=== PATIENT | male | born 1960 | race Caucasian/White ===

== ENCOUNTER 2016-05-23 04:47 | Emergency (ER) | payer MEDICARE ==
[~2016-05-23] VITALS: Ht 193 cm; Wt 98.0 kg
[~2016-05-23 04:47] MED LIST: ADULT ASA81 MG OR; AMARYL4 MG PO; AMOXICILLIN500 MG OR; AMOXICILLIN500 MG PO; AUGMENTIN875 MG OR; AUGMENTIN875TAB OR; AVANDIA4 MG OR; AVANDIA8 MG OR; BACTRIM DS1 TAB OR; BACTRIM DS1 TAB PO; BUT/APAP/CAF PO; CELEBREX200 MG PO; CELEXA40 M1 PO; CEPHALEXIN500 MG PO; CLONAZEP ODT1 MG OR; CLONAZEPAM1 MG OR; DEPAKOTE ER500 MG PO; DEPAKOTE500 MG OR; DIABETA5 MG OR; DOXYCYC MONO100 MG OR; EC-NAPROSYN500 MG PO; FLEXERIL OR; FLOXIN OTIC OT; GLYB/METFO5 MG/500 M OR; HYDROCO/APAP1 TA9 PO; KEFLEX500 MG PO; KLONOPIN1 MG PO; LANTUS SC; LANTUS100 MG/ML SC; LEVOTHYROXIN100 MC1 PO; LEVOTHYROXINE100 MCG PO; LORTAB 10 OR; LORTAB 10 PO; LORTAB 7.5 OR; LOSARTAN POT25 MG PO; LOSARTAN POT50 MG PO; LOVASTATIN40 MG OR; MELOXICAM15 MG PO; METFORMIN1000 MG PO; METFORMIN850 MG OR; METHOCARBAM500 MG PO; METOPROLOL SUCC50 MG PO; METOPROLOL50 MG OR; NAPROSYN500 MG PO; NEXIUM40 M1 OR; NEXIUM40 MG OR; NITROQUICK0.4 MG SL; NITROSTAT0.4 MG SL; NOVOLIN 70/30 SC; PERCOCET 5/325M1 TAB OR; PERCOCET 5/325M1 TAB PO; PRANDIN1 MG OR; PRAVACHOL80 MG PO; PREVACID30 M1 PO; PREVACID30 M3 PO; PRIMIDONE50 MG OR; PRISTIQ50 MG PO; PROPRANOLOL120 MG OR; PROPRANOLOL20 MG OR; QUETIAPINE FUM100 MG PO; SEROQUEL100 MG PO; SEROQUEL200 MG OR; SOMA350 MG PO; TOPROL XL50 MG OR; ULTRAM50 M1 PO; ULTRAM50 MG OR; ZANAFLEX4 MG OR; ZOFRAN ODT4 MG PO; ZOLPIDEM10 M1 PO
[2016-05-23] MEDS ORDERED: METOPROL TAR25 MG PO (05:08)
[2016-05-23] MEDS ORDERED: PRAVASTATIN20 MG PO (05:16)
[2016-05-23] MEDS ORDERED: FLOMAX0.4 M1 PO (05:19)
[2016-05-23 05:23] LABS: INFLUENZA A NONE DETECTED (NONE DETECT); INFLUENZA B NONE DETECTED (NONE DETECT)
[2016-05-23] MEDS ORDERED: AUGMENTIN875TAB PO (05:46)
[2016-05-23] MEDS ORDERED: CODEINE/GUAIFEN1 SOL PO (05:46)
[2016-05-23 06:07] VITALS: BP 160/88
== END 2016-05-23 06:07 | disposition home or self-care (01) ==
LOC: ED 04:47
PROVIDERS: Emergency Medicine
DX: J02.0 Streptococcal pharyngitis (principal); I10 Essential (primary) hypertension; E11.9 Type 2 diabetes mellitus without complications; E78.5 Hyperlipidemia, unspecified; F31.9 Bipolar disorder, unspecified; G20 Parkinson's disease

== ENCOUNTER 2016-05-31 14:29 | Emergency (ER) | payer OTHER, MEDICARE ==
[~2016-05-31] VITALS: Ht 193 cm; Wt 100.0 kg
[~2016-05-31 14:29] MED LIST changes: +AUGMENTIN875TAB PO; +CODEINE/GUAIFEN1 SOL PO; +FLOMAX0.4 M1 PO; +METOPROL TAR25 MG PO; +PRAVASTATIN20 MG PO
[2016-05-31] MEDS ORDERED: EC-NAPROSYN500 MG PO (16:40)
[2016-05-31] MEDS ORDERED: PERCOCET 5/325M1 TAB PO (16:40)
[2016-05-31] MEDS ORDERED: FLEXERIL PO (16:40)
[2016-05-31 16:51] VITALS: BP 152/88
== END 2016-05-31 17:19 | disposition home or self-care (01) | DRG 563 ==
LOC: ED 14:29
DX: S39.012A Strain of muscle, fascia and tendon of lower back, initial encounter (principal); G20 Parkinson's disease; S29.012A Strain of muscle and tendon of back wall of thorax, initial encounter; I10 Essential (primary) hypertension; E11.9 Type 2 diabetes mellitus without complications; E78.5 Hyperlipidemia, unspecified; F31.9 Bipolar disorder, unspecified; V49.40XA Driver injured in collision with unspecified motor vehicles in traffic accident, initial encounter

== ENCOUNTER 2016-08-29 23:18 | Emergency (ER) | payer MEDICARE, MEDICAID ==
[~2016-08-29] VITALS: Ht 193 cm; Wt 97.8 kg
[~2016-08-29 23:18] MED LIST changes: +FLEXERIL PO
[2016-08-30 01:10] LABS: HEMATOCRIT 35.7 % (39.0-50.0); HEMOGLOBIN 12.5 g/dl (14.0-18.0); MEAN CELL VOLUME 85.4 fL CALC (80.0-100.0); MEAN CORPUSCULAR HGB 29.9 pG CALC (26.0-32.0); NEUT# 1.5 thou/uL (1.82-7.42); RED BLOOD COUNT 4.18 mill/uL (4.70-6.10); RED CELL DISTRI WIDTH 13.3 % (11.5-15.5)
[2016-08-30 01:12] LABS: URINE BILIRUBIN - DIPSTICK NEGATIVE (NEGATIVE); URINE BLOOD DIPSTICK NEGATIVE (NEGATIVE); URINE CLARITY CLEAR; URINE COLOR YELLOW; URINE GLUCOSE - DIPSTICK >=1000 mg/dL (NEGATIVE); URINE KETONE TRACE mg/dL (NEGATIVE); URINE LEUK ESTERASE NEGATIVE (NEGATIVE); URINE NITRITE - DIPSTICK NEGATIVE (Negative); URINE PROTEIN - DIPSTICK NEGATIVE (NEG-TRACE); URINE SPECIFIC GRAVITY <=1.005; URINE UROBILINOGEN - DIPSTICK 0.2 E.U./dL (0.2)
[2016-08-30 01:16] LABS: BARBITURATES NEGATIVE (NEGATIVE); COCAINE NEGATIVE (NEGATIVE); METHADONE NEGATIVE (NEGATIVE); OXCYCODONE NEGATIVE (NEGATIVE); TETRAHYDROCANNABIONOL NEGATIVE (NEGATIVE); TRICYLIC ANTIDEPRESSANTS NEGATIVE (NEGATIVE)
[2016-08-30 01:29] LABS: ALKALINE PHOSPHATASE 49 u/l (38-126); ANION GAP 14 (6-22 (CALC)); BILIRUBIN, TOTAL 0.4 mg/dL (0.0-1.4); BUN 15 mg/dL (9-20); BUN/CREATININE RATIO 21 (12-20 (CALC)); CALCIUM 9.6 mg/dL (8.4-10.2); CARBON DIOXIDE 26 mmol/l (22-30); CHLORIDE 100 mmol/l (95-108); CREATININE 0.7 mg/dL (0.7-1.3); GFR > 60 ML/MIN (>=60 (CALC)); GFR FOR AFR.AMER. > 60 ML/MIN (>=60 (CALC)); GLUCOSE 402 mg/dL (75-110); POTASSIUM 4.4 mmol/l (3.5-5.1); SGOT/AST 38 u/l (17-59); SGPT/ALT 24 u/l (21-72); SODIUM 136 mmol/l (137-146); TOTAL PROTEIN 6.3 g/dL (6.3-8.2)
[2016-08-30 01:41] LABS: MYOGLOBIN 28 ng/mL (0 - 121)
[2016-08-30 05:16] VITALS: BP 124/67
== END 2016-08-30 05:10 ==
LOC: ED 23:18
PROVIDERS: Emergency Medicine
DX: R55 Syncope and collapse (principal); D69.6 Thrombocytopenia, unspecified; E11.65 Type 2 diabetes mellitus with hyperglycemia; M25.512 Pain in left shoulder; R53.1 Weakness; M54.9 Dorsalgia, unspecified; I10 Essential (primary) hypertension; E78.5 Hyperlipidemia, unspecified; G20 Parkinson's disease; F31.9 Bipolar disorder, unspecified

== ENCOUNTER 2016-12-04 19:53 | Emergency (ER) | payer MEDICARE ==
[~2016-12-04] VITALS: Ht 193 cm; Wt 102.0 kg
[~2016-12-04 19:53] MED LIST changes: +BACLOFEN20 MG PO; +CELEBREX50 MG PO; +LEVEMIR FL100 UNIT/M SC; +LOPID600 MG PO; +OMEPRAZOLE20 M1 PO
[2016-12-04] MEDS ORDERED: DEPAKOTE500 MG PO (20:17)
[2016-12-04] MEDS ORDERED: GLIMEPIRIDE4 MG PO (20:17)
[2016-12-04] MEDS ORDERED: PRAVASTATIN SOD80 MG PO (20:18)
[2016-12-04] MEDS ORDERED: LOSARTAN POT25 MG PO (20:18)
[2016-12-04] MEDS ORDERED: METFORMIN HCL1000 MG PO (20:18)
[2016-12-04] MEDS ORDERED: AMOXICILLIN500 MG PO (21:09)
[2016-12-04] MEDS ORDERED: PERCOCET 5/325M1 TAB PO (21:09)
[2016-12-04 21:30] VITALS: BP 124/67
== END 2016-12-04 21:30 | disposition home or self-care (01) ==
LOC: ED 19:53
DX: K08.89 Other specified disorders of teeth and supporting structures (principal)

== ENCOUNTER 2016-12-24 08:48 | Day surgery (SDC) | payer MEDICARE ==
[~2016-12-24] VITALS: Ht 193 cm; Wt 90.7 kg
[~2016-12-24 08:48] MED LIST changes: +DEPAKOTE500 MG PO; +GLIMEPIRIDE4 MG PO; +METFORMIN HCL1000 MG PO; +PRAVASTATIN SOD80 MG PO
[2016-12-24] MEDS ORDERED: NORCO1 TA2 PO (11:11)
[2016-12-24 11:58] VITALS: BP 128/71
== END 2016-12-24 11:23 | disposition home or self-care (01) ==
LOC: ORM 08:48
PROVIDERS: ATTEND Anesthesiology Pain Medicine
PROC: 3E0T33Z Introduction of Anti-inflammatory into Peripheral Nerves and Plexi, Percutaneous Approach (ICD-10-PCS; principal; 2016-12-24)
PROC: 3E0T3BZ Introduction of Anesthetic Agent into Peripheral Nerves and Plexi, Percutaneous Approach (ICD-10-PCS; 2016-12-24)
DX: M54.2 Cervicalgia (principal); R51 Headache; M54.5 Low back pain; V89.2XXS Person injured in unspecified motor-vehicle accident, traffic, sequela

== ENCOUNTER 2017-01-07 06:03 | Day surgery (SDC) | payer MEDICARE ==
[~2017-01-07] VITALS: Ht 193 cm; Wt 90.7 kg
[~2017-01-07 06:03] MED LIST changes: +NORCO1 TA2 PO
[2017-01-07] MEDS ORDERED: NORCO1 TA2 PO (08:25)
[2017-01-07 09:10] VITALS: BP 108/69
== END 2017-01-07 08:40 | disposition home or self-care (01) ==
LOC: ORM 06:03
PROVIDERS: ATTEND Anesthesiology Pain Medicine
PROC: 3E0T33Z Introduction of Anti-inflammatory into Peripheral Nerves and Plexi, Percutaneous Approach (ICD-10-PCS; principal; 2017-01-07)
PROC: 3E0T3BZ Introduction of Anesthetic Agent into Peripheral Nerves and Plexi, Percutaneous Approach (ICD-10-PCS; 2017-01-07)
DX: M54.2 Cervicalgia (principal); R51 Headache; M47.812 Spondylosis without myelopathy or radiculopathy, cervical region; V89.2XXS Person injured in unspecified motor-vehicle accident, traffic, sequela

== ENCOUNTER 2017-01-15 13:42 | Emergency (ER) | payer MEDICARE ==
[~2017-01-15] VITALS: Ht 193 cm; Wt 92.6 kg
[2017-01-15 15:12] LABS: HEMATOCRIT 36.8 % (39.0-50.0); IMMATURE GRANULOCYTES 0.4 % (0.0-1.0); MEAN CELL VOLUME 83.8 fL CALC (80.0-100.0); MEAN CORPUSCULAR HGB 29.6 pG CALC (26.0-32.0); MEAN CORPUSCULAR HGB CONC 35.3 g/L CALC (32.0-36.0); NEUT# 2.31 thou/uL (1.82-7.42); RED BLOOD COUNT 4.39 mill/uL (4.70-6.10); RED CELL DISTRI WIDTH 13.5 % (11.5-15.5)
[2017-01-15 15:29] LABS: INFLUENZA A NONE DETECTED (NONE DETECT); INFLUENZA B NONE DETECTED (NONE DETECT)
[2017-01-15 15:31] LABS: ALBUMIN 3.9 g/dL (3.2-5.0); ALKALINE PHOSPHATASE 55 u/l (38-126); ANION GAP 15 (6-22 (CALC)); BILIRUBIN, TOTAL 0.5 mg/dL (0.0-1.4); BUN 32 mg/dL (9-20); BUN/CREATININE RATIO 38 (12-20 (CALC)); CALCIUM 9.6 mg/dL (8.4-10.2); CARBON DIOXIDE 27 mmol/l (22-30); CHLORIDE 98 mmol/l (95-108); CREATININE 0.8 mg/dL (0.7-1.3); GFR > 60 ML/MIN (>=60 (CALC)); GFR FOR AFR.AMER. > 60 ML/MIN (>=60 (CALC)); GLUCOSE 335 mg/dL (75-110); SGOT/AST 12 u/l (17-59); SGPT/ALT 20 u/l (21-72); SODIUM 136 mmol/l (137-146); TOTAL PROTEIN 6.1 g/dL (6.3-8.2)
[2017-01-15] MEDS ORDERED: AMOXICILLIN500 MG PO (15:40)
[2017-01-15 15:51] VITALS: BP 139/83
== END 2017-01-15 15:51 | disposition home or self-care (01) ==
LOC: ED 13:42
PROVIDERS: Emergency Medicine
DX: J02.0 Streptococcal pharyngitis (principal); R05 Cough; R53.1 Weakness; R19.7 Diarrhea, unspecified

== ENCOUNTER 2017-05-16 20:24 | Emergency (ER) | payer MEDICARE ==
[~2017-05-16] VITALS: Ht 193 cm; Wt 96.2 kg
[2017-05-16] MEDS ORDERED: NEURONTIN100 MG PO (20:36)
[2017-05-16 21:20] LABS: INFLUENZA A NONE DETECTED (NONE DETECT); INFLUENZA B NONE DETECTED (NONE DETECT)
[2017-05-16 21:29] LABS: HEMOGLOBIN 11.3 g/dl (14.0-18.0); IMMATURE GRANULOCYTES 0.2 % (0.0-1.0); MEAN CELL VOLUME 84.2 fL CALC (80.0-100.0); MEAN CORPUSCULAR HGB 28.8 pG CALC (26.0-32.0); MEAN CORPUSCULAR HGB CONC 34.2 g/L CALC (32.0-36.0); NEUT# 2.76 thou/uL (1.82-7.42); RED BLOOD COUNT 3.92 mill/uL (4.70-6.10); RED CELL DISTRI WIDTH 13.7 % (11.5-15.5)
[2017-05-16 21:39] LABS: ALBUMIN 3.7 g/dL (3.2-5.0); ALKALINE PHOSPHATASE 59 u/l (38-126); ANION GAP 18 (6-22 (CALC)); BILIRUBIN, TOTAL 0.3 mg/dL (0.0-1.4); BUN 30 mg/dL (9-20); BUN/CREATININE RATIO 25 (12-20 (CALC)); CARBON DIOXIDE 24 mmol/l (22-30); CHLORIDE 100 mmol/l (95-108); CREATININE 1.2 mg/dL (0.7-1.3); GFR > 60 ML/MIN (>=60 (CALC)); GFR FOR AFR.AMER. > 60 ML/MIN (>=60 (CALC)); POTASSIUM 4.7 mmol/l (3.5-5.1); SGOT/AST 17 u/l (17-59); SGPT/ALT 27 u/l (21-72); SODIUM 137 mmol/l (137-146); TOTAL PROTEIN 5.7 g/dL (6.3-8.2)
[2017-05-16] MEDS ORDERED: ROBITUSSIN AC10 ML PO (22:04)
[2017-05-16] MEDS ORDERED: CEPHALEXIN500 MG PO (22:04)
[2017-05-16 22:40] VITALS: BP 118/77
== END 2017-05-16 22:43 | disposition home or self-care (01) ==
LOC: ED 20:24
PROVIDERS: Emergency Medicine
DX: J06.9 Acute upper respiratory infection, unspecified (principal); E11.9 Type 2 diabetes mellitus without complications; I10 Essential (primary) hypertension; E78.00 Pure hypercholesterolemia, unspecified; F31.9 Bipolar disorder, unspecified

== ENCOUNTER 2017-06-01 23:24 | Emergency (ER) | payer MEDICARE ==
[~2017-06-01] VITALS: Ht 193 cm; Wt 95.0 kg
[~2017-06-01 23:24] MED LIST changes: +NEURONTIN100 MG PO; +ROBITUSSIN AC10 ML PO
[2017-06-02 00:45] LABS: HEMATOCRIT 31.2 % (39.0-50.0); HEMOGLOBIN 10.5 g/dl (14.0-18.0); IMMATURE GRANULOCYTES 0.2 % (0.0-1.0); MEAN CELL VOLUME 84.8 fL CALC (80.0-100.0); MEAN CORPUSCULAR HGB 28.5 pG CALC (26.0-32.0); MEAN CORPUSCULAR HGB CONC 33.7 g/L CALC (32.0-36.0); NEUT# 2.06 thou/uL (1.82-7.42); RED BLOOD COUNT 3.68 mill/uL (4.70-6.10); RED CELL DISTRI WIDTH 13.1 % (11.5-15.5)
[2017-06-02 00:46] LABS: URINE BILIRUBIN - DIPSTICK NEGATIVE (NEGATIVE); URINE BLOOD DIPSTICK NEGATIVE (NEGATIVE); URINE CLARITY CLEAR; URINE COLOR YELLOW; URINE GLUCOSE - DIPSTICK >=1000 mg/dL (NEGATIVE); URINE KETONE NEGATIVE (NEGATIVE); URINE LEUK ESTERASE NEGATIVE (NEGATIVE); URINE NITRITE - DIPSTICK NEGATIVE (Negative); URINE PROTEIN - DIPSTICK NEGATIVE (NEG-TRACE); URINE SPECIFIC GRAVITY <=1.005; URINE UROBILINOGEN - DIPSTICK 0.2 E.U./dL (0.2)
[2017-06-02 00:59] LABS: ALBUMIN 3.4 g/dL (3.2-5.0); ALKALINE PHOSPHATASE 55 u/l (38-126); ANION GAP 14 (6-22 (CALC)); BILIRUBIN, TOTAL 0.3 mg/dL (0.0-1.4); BUN 22 mg/dL (9-20); BUN/CREATININE RATIO 23 (12-20 (CALC)); CARBON DIOXIDE 28 mmol/l (22-30); CHLORIDE 99 mmol/l (95-108); GFR > 60 ML/MIN (>=60 (CALC)); GFR FOR AFR.AMER. > 60 ML/MIN (>=60 (CALC)); POTASSIUM 4.8 mmol/l (3.5-5.1); SGOT/AST 12 u/l (17-59); SGPT/ALT 28 u/l (21-72); SODIUM 136 mmol/l (137-146); TOTAL PROTEIN 5.6 g/dL (6.3-8.2)
[2017-06-02] MEDS ORDERED: LORTAB 1010 MG PO (01:49)
[2017-06-02 01:59] VITALS: BP 122/65
== END 2017-06-02 01:59 | disposition home or self-care (01) ==
LOC: ED 23:24
PROVIDERS: Emergency Medicine
DX: R51 Headache (principal); E11.40 Type 2 diabetes mellitus with diabetic neuropathy, unspecified; I10 Essential (primary) hypertension; F31.9 Bipolar disorder, unspecified; E78.00 Pure hypercholesterolemia, unspecified

== ENCOUNTER 2017-07-13 22:53 | Emergency (ER) | payer MEDICARE ==
[~2017-07-13] VITALS: Ht 193 cm; Wt 96.3 kg
[~2017-07-13 22:53] MED LIST changes: +LORTAB 1010 MG PO
[2017-07-13] MEDS ORDERED: SEROQUEL100 MG PO (23:36)
[2017-07-13] MEDS ORDERED: TAMSULOSIN HCL0.4 MG PO (23:37)
[2017-07-14 00:13] LABS: IMMATURE GRANULOCYTES 0.2 % (0.0-1.0); MEAN CELL VOLUME 82.2 fL CALC (80.0-100.0); MEAN CORPUSCULAR HGB 28.5 pG CALC (26.0-32.0); MEAN CORPUSCULAR HGB CONC 34.7 g/L CALC (32.0-36.0); NEUT# 2.82 thou/uL (1.82-7.42); RED BLOOD COUNT 4.77 mill/uL (4.70-6.10); RED CELL DISTRI WIDTH 13.2 % (11.5-15.5)
[2017-07-14 00:14] LABS: HEMATOCRIT 39.2 % (39.0-50.0); HEMOGLOBIN 13.6 g/dl (14.0-18.0)
[2017-07-14 00:23] LABS: ALKALINE PHOSPHATASE 78 u/l (38-126); BILIRUBIN, TOTAL 0.4 mg/dL (0.0-1.4); BUN 19 mg/dL (9-20); BUN/CREATININE RATIO 20 (12-20 (CALC)); CARBON DIOXIDE 27 mmol/l (22-30); CHLORIDE 92 mmol/l (95-108); CREATININE 0.9 mg/dL (0.7-1.3); GFR > 60 ML/MIN (>=60 (CALC)); GFR FOR AFR.AMER. > 60 ML/MIN (>=60 (CALC)); SGOT/AST 12 u/l (17-59); SGPT/ALT 29 u/l (21-72); SODIUM 134 mmol/l (137-146)
[2017-07-14 00:26] LABS: ALBUMIN 4.2 g/dL (3.2-5.0); ANION GAP 20 (6-22 (CALC)); POTASSIUM 5.2 mmol/l (3.5-5.1); TOTAL PROTEIN 6.8 g/dL (6.3-8.2)
[2017-07-14 01:05] LABS: URINE BILIRUBIN - DIPSTICK NEGATIVE (NEGATIVE); URINE BLOOD DIPSTICK NEGATIVE (NEGATIVE); URINE CLARITY CLEAR; URINE COLOR YELLOW; URINE GLUCOSE - DIPSTICK >=1000 mg/dL (NEGATIVE); URINE KETONE NEGATIVE (NEGATIVE); URINE LEUK ESTERASE NEGATIVE (NEGATIVE); URINE NITRITE - DIPSTICK NEGATIVE (Negative); URINE PH 5.5 (4.5-8.0); URINE PROTEIN - DIPSTICK NEGATIVE (NEG-TRACE); URINE SPECIFIC GRAVITY <=1.005; URINE UROBILINOGEN - DIPSTICK 0.2 E.U./dL (0.2)
[2017-07-14] MEDS ORDERED: HUMULIN R500 UNIT/M SC (01:25)
[2017-07-14 03:20] VITALS: BP 154/77
== END 2017-07-14 03:18 | disposition home or self-care (01) ==
LOC: ED 22:53
PROVIDERS: Family Medicine
DX: R55 Syncope and collapse (principal); E11.65 Type 2 diabetes mellitus with hyperglycemia; E86.0 Dehydration; M25.551 Pain in right hip; I10 Essential (primary) hypertension; F31.9 Bipolar disorder, unspecified; E78.00 Pure hypercholesterolemia, unspecified; G89.29 Other chronic pain; M54.2 Cervicalgia; M54.9 Dorsalgia, unspecified; W19.XXXA Unspecified fall, initial encounter

== ENCOUNTER 2018-01-14 21:44 | Emergency (ER) | payer MEDICARE, MEDICAID ==
[~2018-01-14] VITALS: Ht 193 cm; Wt 99.0 kg
[~2018-01-14 21:44] MED LIST changes: +HUMULIN R500 UNIT/M SC; +TAMSULOSIN HCL0.4 MG PO
[2018-01-14] MEDS ORDERED: LIDO/PRILOCN1 CRE EX (22:17)
[2018-01-14 22:18] LABS: HEMATOCRIT 36.8 % (39.0-50.0); HEMOGLOBIN 12.7 g/dl (14.0-18.0); IMMATURE GRANULOCYTES 0.2 % (0.0-5.0); MEAN CELL VOLUME 82.3 fL CALC (80.0-100.0); MEAN CORPUSCULAR HGB 28.4 pG CALC (26.0-32.0); MEAN CORPUSCULAR HGB CONC 34.5 g/L CALC (32.0-36.0); NEUT# 3.24 thou/uL (1.82-7.42); RED BLOOD COUNT 4.47 mill/uL (4.70-6.10); RED CELL DISTRI WIDTH 13.3 % (11.5-15.5)
[2018-01-14] MEDS ORDERED: OXYCODONE5 M1 PO (22:19)
[2018-01-14] MEDS ORDERED: METHOCARBAM750 MG PO (22:21)
[2018-01-14 22:37] LABS: INFLUENZA A NONE DETECTED (NONE DETECT); INFLUENZA B NONE DETECTED (NONE DETECT)
[2018-01-14 22:37] LABS: ALBUMIN 3.9 g/dL (3.2-5.0); ALKALINE PHOSPHATASE 56 u/l (38-126); AMYLASE 30 u/l (30-110); ANION GAP 14 (6-22 (CALC)); BILIRUBIN, TOTAL 0.4 mg/dL (0.0-1.4); BUN 16 mg/dL (9-20); BUN/CREATININE RATIO 15 (12-20 (CALC)); CARBON DIOXIDE 26 mmol/l (22-30); CHLORIDE 101 mmol/l (95-108); CREATININE 1.1 mg/dL (0.7-1.3); GFR > 60 ML/MIN (>=60 (CALC)); GFR FOR AFR.AMER. > 60 ML/MIN (>=60 (CALC)); LIPASE 52 u/l (23-300); SGOT/AST 16 u/l (17-59); SODIUM 136 mmol/l (137-146); TOTAL PROTEIN 6.4 g/dL (6.3-8.2)
[2018-01-14 22:42] LABS: POTASSIUM 5.2 mmol/l (3.5-5.1)
[2018-01-14 22:49] LABS: MYOGLOBIN 32 ng/mL (0 - 121)
[2018-01-14 23:10] LABS: URINE BILIRUBIN - DIPSTICK NEGATIVE (NEGATIVE); URINE BLOOD DIPSTICK NEGATIVE (NEGATIVE); URINE CLARITY CLEAR; URINE COLOR YELLOW; URINE GLUCOSE - DIPSTICK 100 mg/dL (NEGATIVE); URINE KETONE NEGATIVE (NEGATIVE); URINE LEUK ESTERASE NEGATIVE (NEGATIVE); URINE NITRITE - DIPSTICK NEGATIVE (Negative); URINE PH 6.5 (4.5-8.0); URINE PROTEIN - DIPSTICK NEGATIVE (NEG-TRACE); URINE UROBILINOGEN - DIPSTICK 0.2 E.U./dL (0.2)
[2018-01-15] MEDS ORDERED: AUGMENTIN875TAB PO (00:27)
[2018-01-15 00:45] VITALS: BP 139/69
== END 2018-01-15 00:45 | disposition home or self-care (01) ==
LOC: ED 21:44
PROVIDERS: Emergency Medicine
DX: J02.0 Streptococcal pharyngitis (principal); I10 Essential (primary) hypertension; E11.9 Type 2 diabetes mellitus without complications; F31.9 Bipolar disorder, unspecified; E78.00 Pure hypercholesterolemia, unspecified; K21.9 Gastro-esophageal reflux disease without esophagitis
CPT/HCPCS: S0164

== ENCOUNTER 2018-04-03 21:07 | Emergency (ER) | payer MEDICARE, MEDICAID ==
[~2018-04-03] VITALS: Ht 193 cm; Wt 100.0 kg
[~2018-04-03 21:07] MED LIST changes: +LIDO/PRILOCN1 CRE EX; +METHOCARBAM750 MG PO; +OXYCODONE5 M1 PO
[2018-04-03] MEDS ORDERED: BACTROBAN21 EX (21:26)
[2018-04-03 22:04] VITALS: BP 133/75
== END 2018-04-03 22:04 | disposition home or self-care (01) ==
LOC: ED 21:07
DX: E11.622 Type 2 diabetes mellitus with other skin ulcer (principal); L97.819 Non-pressure chronic ulcer of other part of right lower leg with unspecified severity; E11.40 Type 2 diabetes mellitus with diabetic neuropathy, unspecified; I10 Essential (primary) hypertension; F31.9 Bipolar disorder, unspecified

== ENCOUNTER 2018-04-21 23:17 | Emergency (ER) | payer MEDICARE, MEDICAID ==
[~2018-04-21] VITALS: Ht 193 cm; Wt 95.2 kg
[~2018-04-21 23:17] MED LIST changes: +BACTROBAN21 EX
[2018-04-21 23:55] LABS: URINE BILIRUBIN - DIPSTICK NEGATIVE (NEGATIVE); URINE BLOOD DIPSTICK NEGATIVE (NEGATIVE); URINE COLOR YELLOW; URINE GLUCOSE - DIPSTICK >=1000 mg/dL (NEGATIVE); URINE KETONE NEGATIVE (NEGATIVE); URINE LEUK ESTERASE NEGATIVE (Negative); URINE NITRITE - DIPSTICK NEGATIVE (Negative); URINE PH 6.5 (4.5-8.0); URINE PROTEIN - DIPSTICK NEGATIVE (NEG-TRACE); URINE SPECIFIC GRAVITY <=1.005; URINE UROBILINOGEN - DIPSTICK 0.2 E.U./dL (0.2)
[2018-04-21 23:56] LABS: HEMATOCRIT 34.5 % (39.0-50.0); HEMOGLOBIN 11.4 g/dl (14.0-18.0); IMMATURE GRANULOCYTES 0.2 % (0.0-5.0); MEAN CELL VOLUME 83.7 fL CALC (80.0-100.0); MEAN CORPUSCULAR HGB 27.7 pG CALC (26.0-32.0); NEUT# 1.77 thou/uL (1.82-7.42); RED BLOOD COUNT 4.12 mill/uL (4.70-6.10); RED CELL DISTRI WIDTH 13.2 % (11.5-15.5); URINE CLARITY CLEAR
[2018-04-22 00:11] LABS: ALKALINE PHOSPHATASE 60 u/l (38-126); AMYLASE 33 u/l (30-110); ANION GAP 16 (6-22 (CALC)); BILIRUBIN, TOTAL 0.3 mg/dL (0.0-1.4); BUN 14 mg/dL (9-20); BUN/CREATININE RATIO 14 (12-20 (CALC)); CARBON DIOXIDE 26 mmol/l (22-30); CHLORIDE 100 mmol/l (95-108); GFR > 60 ML/MIN (>=60 (CALC)); GFR FOR AFR.AMER. > 60 ML/MIN (>=60 (CALC)); LIPASE 55 u/l (23-300); POTASSIUM 4.9 mmol/l (3.5-5.1); SGOT/AST 16 u/l (17-59); SODIUM 136 mmol/l (137-146); TOTAL PROTEIN 6.6 g/dL (6.3-8.2)
[2018-04-22 00:21] LABS: MYOGLOBIN 33 ng/mL (0 - 121)
[2018-04-22] MEDS ORDERED: ZOFRAN ODT4 MG PO (01:41)
[2018-04-22] MEDS ORDERED: PROTONIX40 MG PO (01:44)
[2018-04-22 02:16] VITALS: BP 156/73
== END 2018-04-22 02:16 | disposition home or self-care (01) ==
LOC: ED 23:17
PROVIDERS: Emergency Medicine
DX: B34.9 Viral infection, unspecified (principal); E11.9 Type 2 diabetes mellitus without complications; I10 Essential (primary) hypertension; F31.9 Bipolar disorder, unspecified; E78.00 Pure hypercholesterolemia, unspecified; K22.70 Barrett's esophagus without dysplasia; K21.9 Gastro-esophageal reflux disease without esophagitis
CPT/HCPCS: S0164

== ENCOUNTER 2019-03-06 | Emergency (ER) | payer MEDICARE ==
[~2019-03-06] MED LIST changes: +CARAFATE1 GM PO; +LEVEMIR100 UNIT/M SC; +LISINOPRIL5 MG PO; +OXYCOD/APAP1 TA4 PO; +PERCOCET1 TA4 PO; +PROTONIX40 MG PO
[2019-03-06] MEDS ORDERED: CLONIDINE0.1 MG PO (14:33)
[2019-03-06] MEDS ORDERED: LISINOPRIL20 MG PO (14:33)
[2019-03-06] MEDS ORDERED: BENZTROPINE0.5 MG PO (14:34)
[2019-03-06] MEDS ORDERED: LABETALOL200 MG PO (14:34)
[2019-03-06] MEDS ORDERED: ZOFRAN4 MG PO (14:37)
[2019-03-06] MEDS ORDERED: MAGNESIUM200 MG PO (14:37)
[2019-03-06] MEDS ORDERED: HYDRALAZINE10 MG PO (14:38)
[2019-03-06] MEDS ORDERED: NABUMETONE500 MG PO (14:39)
[2019-03-06] MEDS ORDERED: KEFLEX500 M1 PO (15:11)
[2019-03-06] MEDS ORDERED: BACTROBAN TOP (15:11)
== END 2019-03-06 15:30 | disposition home or self-care (01) ==
DX: S60.421A Blister (nonthermal) of left index finger, initial encounter (principal); E11.9 Type 2 diabetes mellitus without complications; I10 Essential (primary) hypertension; X58.XXXA Exposure to other specified factors, initial encounter; Z79.4 Long term (current) use of insulin

== ENCOUNTER 2019-07-19 23:53 | Observation (INO) | payer MEDICARE, MEDICAID ==
[~2019-07-19] VITALS: Ht 193 cm; Wt 93.0 kg
[~2019-07-19 23:53] MED LIST changes: +BACTROBAN TOP; +BENZTROPINE0.5 MG PO; +CLONIDINE0.1 MG PO; +HYDRALAZINE10 MG PO; +KEFLEX500 M1 PO; +LABETALOL200 MG PO; +LISINOPRIL20 MG PO; +MAGNESIUM200 MG PO; +NABUMETONE500 MG PO; +ZOFRAN4 MG PO
[2019-07-20] VITALS (9 sets, daily range): BP systolic 149–186; BP diastolic 74–93
[2019-07-20 01:18] LABS: HEMATOCRIT 27.7 % (39.0-50.0); HEMOGLOBIN 9.1 g/dl (14.0-18.0); IMMATURE GRANULOCYTES 0.3 % (0.0-5.0); MEAN CELL VOLUME 84.7 fL CALC (80.0-100.0); MEAN CORPUSCULAR HGB 27.8 pG CALC (26.0-32.0); MEAN CORPUSCULAR HGB CONC 32.9 g/dL CAL (32.0-36.0); NEUT# 4.33 thou/uL (1.82-7.42); RED BLOOD COUNT 3.27 mill/uL (4.70-6.10); RED CELL DISTRI WIDTH 13.7 % (11.5-15.5)
[2019-07-20 01:23] LABS: URINE BILIRUBIN - DIPSTICK NEGATIVE (NEGATIVE); URINE BLOOD DIPSTICK MODERATE (NEGATIVE); URINE COLOR YELLOW; URINE GLUCOSE - DIPSTICK NEGATIVE (NEGATIVE); URINE KETONE NEGATIVE (NEGATIVE); URINE LEUK ESTERASE NEGATIVE (NEGATIVE); URINE PROTEIN - DIPSTICK 100 mg/dL (NEG-TRACE); URINE UROBILINOGEN - DIPSTICK 0.2 E.U./dL (0.2)
[2019-07-20 01:30] LABS: URINE BACTERIA MODERATE hpf; URINE EPITHELIAL CELLS FEW EPI/hpf (0-FEW); URINE NITRITE - DIPSTICK NEGATIVE (Negative)
[2019-07-20 01:41] LABS: ALBUMIN 3.2 g/dL (3.2-5.0); ALKALINE PHOSPHATASE 46 u/l (38-126); BILIRUBIN, TOTAL 0.3 mg/dL (0.0-1.4); BUN 17 mg/dL (9-20); BUN/CREATININE RATIO 16 (12-20 (CALC)); CARBON DIOXIDE 30 mmol/l (22-30); CHLORIDE 100 mmol/l (95-108); CREATININE 1.1 mg/dL (0.7-1.3); GFR > 60 ML/MIN (>=60 (CALC)); GFR FOR AFR.AMER. > 60 ML/MIN (>=60 (CALC)); LIPASE 21 u/l (23-300); SGOT/AST 17 u/l (17-59); SODIUM 133 mmol/l (137-146); TOTAL PROTEIN 5.6 g/dL (6.3-8.2)
[2019-07-20 01:42] LABS: ACT PARTIAL THROMBO TIME 26.9 SECONDS (20.0-32.5); INTERNATIONAL NORMALIZED RATIO 1.1 RATIO (0.7-1.3); PROTHROMBIN TIME 11.9 SECONDS (9.0-12.5)
[2019-07-20 01:53] LABS: AMYLASE 155 u/l (30-110)
[2019-07-20 01:54] LABS: MYOGLOBIN 76 ng/mL (0 - 121)
[2019-07-20 02:09] LABS: ANION GAP 8 (6-22 (CALC)); POTASSIUM 4.5 mmol/l (3.5-5.1)
--- NOTE | 2019-07-20 02:17 | NUR ---
C/O BEING COLD/CHILLS. VSS. ADDITIONAL BLANKETS GIVEN.
--- NOTE | 2019-07-20 03:00 | NUR ---
REPORT TO YENIFER ROMANO, NURSE/MED-SURG.
--- NOTE | 2019-07-20 03:10 | NUR ---
TO ROOM WITH TYLENOL/ASA AND LASIX. STATES THAT THE TYENOL WILL NOT HELP SINCE SHE GAVE HIM A PERCOSET AND IT DIDN'T HELP.
--- NOTE | 2019-07-20 03:19 | NUR ---
ATTEMPTED TO CALL REPORT. NURSE WILL CALL BACK.
--- NOTE | 2019-07-20 03:45 | NUR ---
TO THE HOUSE (COVID VISITATION PROTOCAL) . CLOTHING AND SHOES/WALKING STICK/MEDS HOME WITH . PT TO FLOOR VIA STRETCHER. REFUSED THE TYLENOL AND ASA DOWN HERE. WRITING FOR ADDITIONAL MEDICATION THAT WILL BE GIVEN UPSTAIRS.
[2019-07-20] MEDS ORDERED: PERCOCET 10/31 COMBO PO (04:21)
--- NOTE | 2019-07-20 04:51 | NUR ---
PATIENT ARRIVED TO FLOOR REPORT RECEIVED FROM NURSE MART ORIENTED TO ROOM AND CALL LIGHT SYSTEM
--- NOTE | 2019-07-20 05:50 | NUR ---
PATIENT C/O HEADACHE DUE MORPHINE GIVEN, PATIENTS IV REMOVED OCCLUDED, INSERTED NEW IV SITE, PATENT FLUSHES WELL.
--- NOTE | 2019-07-20 05:51 | NUR ---
ADMISSION ASSESSMENT COMPLETED, CURRENTLY RESTING IN BED CALL LIGHT AT REACH.
--- NOTE | 2019-07-20 06:52 | NUR ---
CALLED DR. CORADO AND INFORMED OF BP 170/82, WITH ORDERS MADE AND FAX TO PHARMACY.
--- NOTE | 2019-07-20 08:00 | NUR ---
RECIEVED REPORT FROM JL STREET. PT RESTING IN SEMI FOWLERS POSITION WATCHING TV UPON ENTERING ROOM. INTRODUCED SELF AND DICUSSED POC. ASSESMENT AND VITALS COMPLETE AT THIS TIME. BP 161/74, HR 78, O2 93% ON ROOM AIR. PT IS A/O X3 AND AMBULATORY. HEART RHYTHM NORMAL, LUNG SOUNDS CLEAR, BOWEL SOUNDS ARE ACTIVE IN ALL QUADRANTS WITH NO TENDERNESS. RADIAL AND PEDAL PULSES ARE STRONG WITH NORMAL CAPILLARY REFILL. PT COMPLAINS OF 8/10 HEADACHE, PRECOCET GIVEN. ALL MORNING MEDS ADMINISTERED AT THIS TIME. PT DENIES ANY OTHER DISCOMFORTS AT THIS TIME. ALL SAFTEY PRECAUTIONS IN PLACE WITH CALL LIGHT IN REACH, ENCOURAGED PT TO CALL FOR ASSISTANCE. WILL CONTINUE TO MONITOR.
--- NOTE | 2019-07-20 12:00 | NUR ---
PT RESTING IN SEMI FOWLERS POSITION WATCHING TV. BREATHING IS EVEN AND UNLABORED. UPON REASSESMENT OF PRECOCET PT RATED THE HEADACHE TO BE A 7/10 BUT STATED "IT IS WORKING". PT DENIES ANY OTHER PAINS OR DISCOMFORTS AT THIS TIME. ALL SAFTEY PRECAUTIONS IN PLACE WITH CALL LIGHT IN REACH, ENCOURAGED PT TO CALL FOR ASSISTANCE. WILL CONTINUE TO MONITOR.
--- NOTE | 2019-07-20 15:45 | NUR ---
PT RESTING IN SEMI FOWLERS POSITION;RESPIRATIONS EVEN AND UNLABORED ON RA;PT REPORTS HEADACHE PAIN AND REQUESTS PAIN MEDICATION,PT MEDICATED WITH PRN PERCOCET 10/325MG PO AT THIS TIME;TELE MONITORING IN PLACE;VS OBTAINED BP 180/87 HR 74, PT TO BE MEDICATED WITH PRN CLONDINE 0.1MG PO;IV SITE PATENT;PT DENIES ANY ADDITONAL NEEDS AND IS ENCOURAGED TO CALL FOR ASSISTANCE IF NEEDED;CALL LIGHT IN REACH;WILL CONTINUE TO MONITOR
--- NOTE | 2019-07-20 17:05 | NUR ---
PT CURRENT BP 184/93 HR 72.PT ASYMPTOMATIC AT THIS TIME,VIOLETA GARCIA NOTIFIED AND NEW ORDERS TO BE RECEIVED.WILL CONTINUE TO MONITOR
--- NOTE | 2019-07-20 17:40 | NUR ---
PT BLOOD PRESSURE REMAINS ELEVATED.PT TO BE MEDICATED WITH PRN APRESOLINE 10MG IVP BY JL FREDERICK;WILL CONTINUE TO MONITOR
--- NOTE | 2019-07-20 18:14 | NUR ---
PT RESTING IN SEMI FOWLERS POSITION WATCHING TV. PT REQUEST PAIN MED FOR HEADACHE. INFORMED PT THAT PERCOCET WAS GIVEN 1540 AND WAS NOT AVALIBALE AT THSI TIME. PT VERBALIZED UNDERSTANDING. PT DENIES ANY OTHER PAIN OR DISCOMFORTS AT THIS TIME. ALL SAFTEY PRECAUTIONS IN PLACE WITH CALL LIGHT IN PLACE. WILL CONTINUE TO MONITOR.
--- NOTE | 2019-07-20 18:45 | NUR ---
PT PRESENTED WITH A BP 184/77 AND HR72. AT THIS TIME BP 149/77 AND HR 73, APPRESSOLINE NOT GIVEN.
--- NOTE | 2019-07-20 19:55 | NUR ---
REPORT FROM KEVIN STILES. PT SITTING UP IN BED. ALERT AND ORIENTED. NO APPARENT DISTRESS NOTED. PT C/O HEADACHE 7-10, LIGHTS TURNED OFF AT THIS TIME. WILL CONTINUE TO MONITOR. DISCUSSED POC. PT VERBALIZED UNDERSTANDING. IV SITE APPEARS HEALTHY. STATION WORKER IN PLACE. CALL LIGHT WITHIN REACH. FRESH ICE WATER AND SNACK PROVIDED.
--- NOTE | 2019-07-20 22:01 | NUR ---
RN ON SHIFT ADMINISTERED IV APRESOLINE FOR ELEVATED BP 183/95 HR 65. WILL CONTINUE TO MONITOR.
--- NOTE | 2019-07-20 22:55 | NUR ---
CURRENT BP 154/74 HR 68. WILL CONTINUE TO MONITOR.
[2019-07-21] VITALS (11 sets, daily range): BP systolic 141–189; BP diastolic 69–95
--- NOTE | 2019-07-21 02:04 | NUR ---
PT RESTING IN BED. NO APPARENT DISTRESS NOTED. PT DENIES ANY PAIN OR DISCOMFORT. DIET SODA PROVIDED AT THIS TIME UPON REQUEST. CALL LIGHT WITHIN REACH. WILL CONTINUE TO MONITOR.
[2019-07-21 05:41] LABS: HEMATOCRIT 28.4 % (39.0-50.0); HEMOGLOBIN 9.2 g/dl (14.0-18.0); MEAN CELL VOLUME 84.5 fL CALC (80.0-100.0); MEAN CORPUSCULAR HGB 27.4 pG CALC (26.0-32.0); MEAN CORPUSCULAR HGB CONC 32.4 g/dL CAL (32.0-36.0); RED BLOOD COUNT 3.36 mill/uL (4.70-6.10); RED CELL DISTRI WIDTH 13.8 % (11.5-15.5)
--- NOTE | 2019-07-21 05:59 | NUR ---
PT C/O CHEST PRESSURE, EKG ORDERED. BP REMAINS ELEVATED. PO CLONIDINE ADMINISTERED AT THIS TIME. WILL CONTINUE TO MONITOR.
[2019-07-21 06:01] LABS: ALBUMIN 3.1 g/dL (3.2-5.0); ALKALINE PHOSPHATASE 41 u/l (38-126); ANION GAP 9 (6-22 (CALC)); BILIRUBIN, TOTAL 0.2 mg/dL (0.0-1.4); BUN 19 mg/dL (9-20); BUN/CREATININE RATIO 18 (12-20 (CALC)); CARBON DIOXIDE 30 mmol/l (22-30); CHLORIDE 99 mmol/l (95-108); CREATININE 1.1 mg/dL (0.7-1.3); GFR > 60 ML/MIN (>=60 (CALC)); GFR FOR AFR.AMER. > 60 ML/MIN (>=60 (CALC)); POTASSIUM 4.5 mmol/l (3.5-5.1); SGOT/AST 14 u/l (17-59); SODIUM 133 mmol/l (137-146); TOTAL PROTEIN 5.3 g/dL (6.3-8.2)
--- NOTE | 2019-07-21 09:11 | NUR ---
PT COVID19 RESULTS CAME BACK NEGATIVE;PT TRANSPORTED TO ROOM 261 AT THIS TIME.
[2019-07-21] MEDS ORDERED: PROTONIX40 M2 PO (10:47)
[2019-07-21] MEDS ORDERED: ASPIRIN ADULT L81 M2 PO (10:48)
--- NOTE | 2019-07-21 10:50 | NUR ---
AT BEDSIDE DISCUSSING POC,INCLUDING PLANS TO DISCHARGE HOME.
--- NOTE | 2019-07-21 12:00 | NUR ---
PT RESTING IN SMEI FOWLERS POSITION WATCHING TV. BREATHING IS EVEN AND UNLABORED. ECHO ORDERED, PT CURENTLY WAITING. PT DENIES ANY PAIN OR DISCOMFORTS AT THIS TIME. ALL SAFTEY PRECAUTIONS IN PLACE WITH CALL LIGHT IN REACH.
--- NOTE | 2019-07-21 15:30 | NUR ---
RECIEVED REPORT FROM GO OROZCO. PT RESTING IN SEMI FOWLERS POSITION WATCHING TV. INTRODUCED SELFT TO PT AND DISCUSSED POC. ASSESMENT AND VITALS COMPLETE. BP 141/73, HR 69, O2 94% ON ROOM AIR. HEART RHYTHM NORMAL, LUNG SOUNDS CLEAR, UPPER BOWEL SOUNDS HYPOACTIVE AND LOWER ACTIVE. LAST REPORTED BM 07/19/19. RADIAL AND PEDAL PULSES ARE STRONG WITH NORMAL CAPILLARY REFILL. PT PRESENT WITH HAND TREMORES, PT STATES ITS FROM [place]. PT REPORTED AT 7/10 HEAD ACHE AND SOME PRESSURE ON THE CHEST. PERCOCET ADMINISTERED AT THIS TIME WITH MORNING MEDS. VIOLETA ALDRICH NOTIFIED OF PT CHEST PRESSURE . PT DENIES ANY OTHER PAIN OR DISCOMFORTS. WILL CONTINUE TO MONITOR PAIN AND PT.
--- NOTE | 2019-07-21 16:21 | NUR ---
PT RESTING IN BED WATHCING TV. BREATHING IS EVEN AND UNLABORED. PT DENIES ANY PAIN OR DISCOMFORTS AT THSI TIME. PT STILL WAITING FOR ECHO. ALL SAFTEY PRECAUTIONS IN PLACE WITH CALL LIGHT IN REACH. WILL CONTINUE TO MONITOR.
--- NOTE | 2019-07-21 16:38 | NUR ---
PT MEDICATED WITH PRN CLODINE 0.1MG PO AT THIS TIME FOR ELEVATED BP.
--- NOTE | 2019-07-21 16:54 | NUR ---
ADÁN,LABEL MAKER AT BEDSIDE OBTAINING ECHOCARDIOGRAM
--- NOTE | 2019-07-21 17:50 | NUR ---
BP REASSESED AT THIS TIME.PT ASYPTOMACTIC. BP 189/95, HR 72, O2 94% ON ROOM AIR. ALIDA RN ADMINISTERING 10ML IV PUSH APRESOLINE. PT DENIES ANY PAIN OR DISCOMFORTS AT THIS TIME. WILL CONTINUE TO MONITOR.
--- NOTE | 2019-07-21 18:10 | NUR ---
SPOKE WITH DR. LAUREANO ABOUT ELEVATED BP, AWAITING ORDERS.
--- NOTE | 2019-07-21 18:26 | NUR ---
SPOKE WITH ABOUT ELEVATED BP.NEW ORDER RECEIVED FOR NORVASC 5MG PO DAILY.DISCHARGE TI BE HELD UNTIL ELEVATED BLOOD PRESSURE IS RESOLVED.WILL CONTINUE TO MONITOR
--- NOTE | 2019-07-21 18:41 | NUR ---
REASSESSMENT OF BP AT THSI TIME. BP 166, HR 72, O2 98% ON ROOM AIR. NORVASC 5 MG PO DAILY TO BE ADMINISTERED AFTER PHARMACY VERIFIES.
--- NOTE | 2019-07-21 19:25 | NUR ---
PT RESTING IN BED NO SIGNS OF DISTRESS NOTED, RESP EVEN AND UNLABORED. PT ALERT AND ORIENTED X3, DISCUSSED NORVASC AND POSS DISCHARGE, PT STATES HE WILL WAIT UNTIL MORNING. ASSESSMENT COMPLETED. PT VOICES NO NEEDS OR COMPLAINTS AT THIS TIME. CALL LIGHT IN REACH,CONTINUE TO MONITOR.
[2019-07-21] MEDS ORDERED: AMLODIPINE BESYL5 MG PO (20:30)
--- NOTE | 2019-07-21 21:36 | NUR ---
PT AMBULATED BACK FROM BATHROOM, PT SITTING ON SIDE OF BED, DISCUSSED NORVASC, PT VERBALIZED UNDERSTANDING. CALL LIGHT IN REACH,CONTINUE TO MONITOR.
--- NOTE | 2019-07-22 00:19 | NUR ---
PT RETURNING FROM BATHROOM, NO SIGNS OF DISTRESS NOTED, RESP EVEN AND UNLABORED. PT C/O PAIN 09/08, PT MEDICATED PER APR. CALL LIGHT IN REACH,CONTINUE TO MONITOR.
--- NOTE | 2019-07-22 02:16 | NUR ---
PT AWAKE WATCHING TV, ACCUCHECK OBTAINED SINCE PT WAS LOW 07/20 IN AM, ACCUCHECK 127. RICHARD VELAZQUEZ PROVIDED PER PT REQUEST. CALL LIGHT IN REACH,CONTINUE TO MONITOR.
[2019-07-22 03:41] VITALS: BP 153/80
--- NOTE | 2019-07-22 04:00 | NUR ---
PT MEDICATED PER MAR FOR BP. PT VOICES NO NEEDS OR COMPLAINTS AT THIS TIME. PT WATCHING TV, CALL LIGHT IN REACH,CONTINUE TO MONITOR.
[2019-07-22 05:11] VITALS: BP 160/82
--- NOTE | 2019-07-22 05:11 | NUR ---
PT RESTING IN BED,SBP 160 UNABLE TO GIVE APRESOLINE, BP PARAMETERS >SBP 165, PT VOICES NO NEEDS OR COMPLAINTS AT THIS TIME. CALL LIGHT IN REACH,CONTINUE TO MONITOR.
[2019-07-22 08:15] VITALS: BP 170/70
--- NOTE | 2019-07-22 08:15 | NUR ---
ASSESSMENT IS COMPLTED: IV SITE IS FREE FROM REDNESS OR EDEMA. HR IS REG,PULSES ARE STRONG X4, ABD IS SOFT WITH ACTIVE BS. BREATH SOUNDS ARE CLEAR. BILATERALLY. TELE MONITOR IN PLACE. C/O LEFT CHEST PAIN NON RADIATING.
[2019-07-22 09:06] VITALS: BP 170/70
--- NOTE | 2019-07-22 10:00 | NUR ---
IV SITE AND TELE DISCONTINUED CATHETER INTACT. NO REDNESS OR EDEMA.
--- NOTE | 2019-07-22 10:01 | NUR ---
SPOKE WITH PTS RE: LABS , AND DISCHARGE INSTRUCTIONS. VERBALIZED UNDERSTANDING. EXPLAIEND RE: UNABLE TO GET XRAY, AND ECHO REPORTS NEED TO COME BACK NEXT WEEK TO GET FROM MEDICAL RECORDS/.UNABLE TO ACCESS ON LINE WITH PORTAL.
--- NOTE | 2019-07-22 10:10 | NUR ---
DISCHARGE INSTRUCTIONS GIVEN AND VERBALIZED UNDERSTANDING. Discharge instructions given. Patient verbalizes understanding of same. Discharged in stable condition via Wheelchair to Home with family. All belongings sent with pt.
== END 2019-07-22 10:05 | disposition home or self-care (01) ==
LOC: ED 23:53 → ED-I 07-20 02:19 → ED 07-20 02:50 → MS2 07-20 02:51
PROVIDERS: Emergency Medicine; Nurse Practitioner Family; ADMIT Internal Medicine; ATTEND Internal Medicine
DX: I11.0 Hypertensive heart disease with heart failure (principal); I50.9 Heart failure, unspecified; E11.9 Type 2 diabetes mellitus without complications; K30 Functional dyspepsia; D64.9 Anemia, unspecified; G20 Parkinson's disease; E03.9 Hypothyroidism, unspecified; F31.9 Bipolar disorder, unspecified; F41.9 Anxiety disorder, unspecified; Z79.4 Long term (current) use of insulin; Z20.828 Contact with and (suspected) exposure to other viral communicable diseases
CPT/HCPCS: G0378

== ENCOUNTER 2019-11-10 22:00 | Emergency (ER) | payer MEDICARE, MEDICAID ==
[~2019-11-10] VITALS: Ht 193 cm; Wt 86.4 kg
[~2019-11-10 22:00] MED LIST changes: +AMLODIPINE BESYL5 MG PO; +ASPIRIN ADULT L81 M2 PO; +PERCOCET 10/31 COMBO PO; +PROTONIX40 M2 PO
[2019-11-10 22:41] LABS: HEMATOCRIT 27.3 % (39.0-50.0); HEMOGLOBIN 8.5 g/dl (14.0-18.0); IMMATURE GRANULOCYTES 0.2 % (0.0-5.0); MEAN CELL VOLUME 88.1 fL CALC (80.0-100.0); MEAN CORPUSCULAR HGB 27.4 pG CALC (26.0-32.0); MEAN CORPUSCULAR HGB CONC 31.1 g/dL CAL (32.0-36.0); NEUT# 2.41 thou/uL (1.82-7.42); RED BLOOD COUNT 3.1 mill/uL (4.70-6.10); RED CELL DISTRI WIDTH 14.8 % (11.5-15.5)
[2019-11-10 22:59] LABS: ALBUMIN 3.4 g/dL (3.2-5.0); ALKALINE PHOSPHATASE 40 u/l (38-126); ANION GAP 10 (6-22 (CALC)); BILIRUBIN, TOTAL 0.2 mg/dL (0.0-1.4); BUN 21 mg/dL (9-20); BUN/CREATININE RATIO 18 (12-20 (CALC)); CARBON DIOXIDE 27 mmol/l (22-30); CHLORIDE 105 mmol/l (95-108); CPK 123 u/l (52-200); CREATININE 1.2 mg/dL (0.7-1.3); GFR > 60 ML/MIN (>=60 (CALC)); GFR FOR AFR.AMER. > 60 ML/MIN (>=60 (CALC)); MAGNESIUM 1.5 mg/dL (1.6-2.3); SGOT/AST 19 u/l (17-59); SODIUM 137 mmol/l (137-146); TOTAL PROTEIN 5.6 g/dL (6.3-8.2)
[2019-11-10 23:03] LABS: POTASSIUM 5.3 mmol/l (3.5-5.1)
[2019-11-10] MEDS ORDERED: LIVALO2 M1 PO (23:32)
[2019-11-10] MEDS ORDERED: METHOCARBAMOL500 MG PO (23:33)
[2019-11-10] MEDS ORDERED: NABUMETONE500 MG PO (23:34)
[2019-11-10] MEDS ORDERED: HYDRALAZINE10 MG PO (23:35)
[2019-11-10] MEDS ORDERED: LISINOPRIL20 MG PO (23:36)
[2019-11-10 23:55] LABS: URINE BILIRUBIN - DIPSTICK NEGATIVE (NEGATIVE); URINE BLOOD DIPSTICK TRACE-INTACT (NEGATIVE); URINE COLOR YELLOW; URINE GLUCOSE - DIPSTICK NEGATIVE (NEGATIVE); URINE KETONE NEGATIVE (NEGATIVE); URINE LEUK ESTERASE NEGATIVE (NEGATIVE); URINE NITRITE - DIPSTICK NEGATIVE (Negative); URINE PROTEIN - DIPSTICK 100 mg/dL (NEG-TRACE); URINE UROBILINOGEN - DIPSTICK 0.2 E.U./dL (0.2)
[2019-11-11] MEDS ORDERED: TORADOL PO (00:27)
[2019-11-11 00:32] LABS: URINE SQUAMOUS EPITHELIAL CELL FEW EPI/hpf (0-FEW)
[2019-11-11 01:05] VITALS: BP 206/90
== END 2019-11-11 01:05 | disposition home or self-care (01) ==
LOC: ED 22:00
PROVIDERS: Family Medicine
DX: R60.0 Localized edema (principal); D64.9 Anemia, unspecified; R07.89 Other chest pain; I10 Essential (primary) hypertension; E11.9 Type 2 diabetes mellitus without complications; G20 Parkinson's disease; Z79.84 Long term (current) use of oral hypoglycemic drugs

== ENCOUNTER 2019-11-14 15:12 | Emergency (ER) | payer MEDICARE, MEDICAID ==
[~2019-11-14] VITALS: Ht 193 cm; Wt 95.0 kg
[~2019-11-14 15:12] MED LIST changes: +LIVALO2 M1 PO; +METHOCARBAMOL500 MG PO; +TORADOL PO
[2019-11-14 16:06] LABS: HEMATOCRIT 25.1 % (39.0-50.0); HEMOGLOBIN 7.8 g/dl (14.0-18.0); IMMATURE GRANULOCYTES 0.3 % (0.0-5.0); MEAN CELL VOLUME 88.1 fL CALC (80.0-100.0); MEAN CORPUSCULAR HGB 27.4 pG CALC (26.0-32.0); MEAN CORPUSCULAR HGB CONC 31.1 g/dL CAL (32.0-36.0); NEUT# 4.28 thou/uL (1.82-7.42); RED BLOOD COUNT 2.85 mill/uL (4.70-6.10); RED CELL DISTRI WIDTH 14.5 % (11.5-15.5)
[2019-11-14 16:29] LABS: ALBUMIN 3.3 g/dL (3.2-5.0); ALKALINE PHOSPHATASE 43 u/l (38-126); ANION GAP 11 (6-22 (CALC)); BUN 22 mg/dL (9-20); BUN/CREATININE RATIO 16 (12-20 (CALC)); CARBON DIOXIDE 26 mmol/l (22-30); CHLORIDE 100 mmol/l (95-108); CREATININE 1.4 mg/dL (0.7-1.3); GFR 52 ML/MIN (>=60 (CALC)); GFR FOR AFR.AMER. > 60 ML/MIN (>=60 (CALC)); SGOT/AST 26 u/l (17-59); SODIUM 132 mmol/l (137-146); TOTAL PROTEIN 5.9 g/dL (6.3-8.2)
[2019-11-14 16:30] LABS: BILIRUBIN, TOTAL 0.5 mg/dL (0.0-1.4)
[2019-11-14 17:41] LABS: URINE BILIRUBIN - DIPSTICK NEGATIVE (NEGATIVE); URINE BLOOD DIPSTICK NEGATIVE (NEGATIVE); URINE COLOR YELLOW; URINE GLUCOSE - DIPSTICK NEGATIVE (NEGATIVE); URINE KETONE NEGATIVE (NEGATIVE); URINE LEUK ESTERASE NEGATIVE (NEGATIVE); URINE NITRITE - DIPSTICK NEGATIVE (Negative); URINE PROTEIN - DIPSTICK 100 mg/dL (NEG-TRACE); URINE SPECIFIC GRAVITY 1.025; URINE UROBILINOGEN - DIPSTICK 0.2 E.U./dL (0.2)
[2019-11-14 17:43] LABS: URINE RBC 0-2 RBC/hpf (0-5); URINE WBC 0-2 WBC/hpf (0-5)
[2019-11-14] MEDS ORDERED: KEFLEX500 M1 PO (18:35)
[2019-11-14 19:10] VITALS: BP 192/77
== END 2019-11-14 19:10 | disposition home or self-care (01) ==
LOC: ED 15:12
DX: S00.03XA Contusion of scalp, initial encounter (principal); M54.5 Low back pain; D64.9 Anemia, unspecified; S50.861A Insect bite (nonvenomous) of right forearm, initial encounter; S40.862A Insect bite (nonvenomous) of left upper arm, initial encounter; S30.861A Insect bite (nonvenomous) of abdominal wall, initial encounter; E11.9 Type 2 diabetes mellitus without complications; I10 Essential (primary) hypertension; G20 Parkinson's disease; W57.XXXA Bitten or stung by nonvenomous insect and other nonvenomous arthropods, initial encounter; W01.0XXA Fall on same level from slipping, tripping and stumbling without subsequent striking against object, initial encounter; Z79.84 Long term (current) use of oral hypoglycemic drugs